=== PATIENT | female | born 1950 | race Caucasian/White ===

== ENCOUNTER → 2017-05-06 10:45 | Outpatient (CLI) | payer MEDICARE ==
[2017-05-06 13:10] LABS: BASOPHILS 0.5 % (0-2); EOSINOPHILS 1.8 % (0-7); HEMATOCRIT 37.6 % (36.0-48.0); HEMOGLOBIN 12.8 g/dL (12-16); IMMATURE GRANULOCYTES 0.2 % (0-5); LYMPHOCYTES 27.1 % (15-50); MCH 32.6 pg (26.0-34.0); MCV 95.7 fL (80.0-100.0); MEAN PLATELET VOLUME 9.8 fL (7.4-10.4); MONOCYTES 7.8 % (2-11); NEUTROPHILS 62.6 % (40-80); PLATELET COUNT 207 10x3/uL (130-400); RBC 3.93 10x6/uL (4.00-5.40); WBC 6.1 10x3/uL (4.8-10.8)
[2017-05-14 03:10] LABS: IMMUNOGLOBULIN E 458 IU/mL (0-100)
== END | disposition home or self-care (01) ==
LOC: D.LAB 04-28 10:15 → D.RAD 04-28 10:30 → D.RT 04-28 11:00
PROVIDERS: Internal Medicine Pulmonary Disease
DX: J44.9 Chronic obstructive pulmonary disease, unspecified (principal); J45.909 Unspecified asthma, uncomplicated

== ENCOUNTER → 2017-08-31 07:41 | Outpatient (CLI) | payer MEDICARE | END | disposition home or self-care (01) | LOC: D.RAD 07:41 | DX: R13.12 Dysphagia, oropharyngeal phase (principal) ==

== ENCOUNTER 2018-12-01 09:00 | Outpatient (CLI) | payer MEDICARE | END 2018-12-01 10:00 | disposition home or self-care (01) | LOC: D.MAMMO 09:00 | PROVIDERS: ATTEND Nurse Practitioner | DX: Z12.31 Encounter for screening mammogram for malignant neoplasm of breast (principal) ==